=== PATIENT | male | born 1940 | race Caucasian/White ===

== ENCOUNTER 2017-01-30 16:33 | Outpatient (CLI) | payer MEDICARE | END 2017-01-30 16:34 | disposition home or self-care (01) | DX: I10 Essential (primary) hypertension (principal); E78.2 Mixed hyperlipidemia; R78.89 Finding of other specified substances, not normally found in blood ==

== ENCOUNTER 2017-08-27 08:02 | Outpatient (CLI) | payer MEDICARE ==
[2017-08-27 08:21] LABS: BASOPHILS # (AUTO) 0.1 10^3/uL (0.0-0.1); BASOPHILS % (AUTO) 0.5 %; EOSINOPHILS # (AUTO) 0.3 10^3/uL (0.0-0.7); EOSINOPHILS % (AUTO) 3.1 %; HCT - HEMATOCRIT 40.2 % (42.0-52.0); HGB - HEMOGLOBIN 13.5 g/dL (14.0-18.0); LYMPHOCYTES # (AUTO) 1.5 10^3/uL (1.5-3.5); LYMPHOCYTES % (AUTO) 13.6 %; MEAN CORPUSCULAR HEMOGLOBIN 28.8 pg (27.0-31.0); MEAN CORPUSCULAR HGB CONC 33.5 g/dL (32.0-36.0); MEAN PLATELET VOLUME 7.5 fL (7.4-11.4); MONOCYTES # (AUTO) 0.7 10^3/uL (0.0-1.0); MONOCYTES % (AUTO) 6.4 %; NEUTROPHILS # (AUTO) 8.5 10^3/uL (1.5-6.6); NEUTROPHILS % (AUTO) 76.4 %; RED BLOOD COUNT 4.68 10^6/uL (4.70-6.10); RED CELL DISTRIBUTION WIDTH 15.1 % (12.0-15.0); UNCORRECTED WHITE BLOOD COUNT 11.1 x10^3/uL; WHITE BLOOD COUNT 11.1 x10^3/uL (4.8-10.8)
[2017-08-27 08:53] LABS: ALBUMIN/GLOBULIN RATIO 1.3 (1.0-2.2); BILIRUBIN,TOTAL 0.7 mg/dL (0.2-1.0); BUN - BLOOD UREA NITROGEN 19 mg/dL (6-20); CARBON DIOXIDE - CO2 26 mmol/L (21-32); CHLORIDE 103 mmol/L (101-111); CHOLESTEROL 159 mg/dL; GFR - MDRD 73 (>89); GLUCOSE 109 mg/dL (70-100); HDL CHOLESTEROL 40 mg/dL; LDL CHOLESTEROL,DIRECT 83 mg/dL; LDL/HDL RATIO 1.8 (<3.6); POTASSIUM 3.9 mmol/L (3.5-5.0); SODIUM 139 mmol/L (135-145); TOTAL PROTEIN 7.5 g/dL (6.7-8.2); TRIGLYCERIDES 238 mg/dL; VLDL CHOLESTEROL 48 mg/dL
== END 2017-08-27 08:03 | disposition home or self-care (01) ==
LOC: LAB 08:02
PROVIDERS: ATTEND Family Medicine
DX: I10 Essential (primary) hypertension (principal); E78.1 Pure hyperglyceridemia; D64.9 Anemia, unspecified; E55.9 Vitamin D deficiency, unspecified
CPT/HCPCS: 36415; 80053; 80061; 82306; 85025

== ENCOUNTER 2018-03-14 05:51 | Emergency (ER) | payer MEDICARE ==
[2018-03-14 06:15] LABS: BASOPHILS # (AUTO) 0.1 10^3/uL (0.0-0.1); BASOPHILS % (AUTO) 0.7 %; EOSINOPHILS # (AUTO) 0.3 10^3/uL (0.0-0.7); EOSINOPHILS % (AUTO) 2.8 %; HGB - HEMOGLOBIN 14.5 g/dL (14.0-18.0); LYMPHOCYTES # (AUTO) 1.5 10^3/uL (1.5-3.5); MEAN CORPUSCULAR HGB CONC 32.7 g/dL (32.0-36.0); MEAN CORPUSCULAR VOLUME 88.8 fL (80.0-94.0); MEAN PLATELET VOLUME 7.5 fL (7.4-11.4); MONOCYTES # (AUTO) 0.7 10^3/uL (0.0-1.0); MONOCYTES % (AUTO) 7.2 %; NEUTROPHILS # (AUTO) 7.3 10^3/uL (1.5-6.6); NEUTROPHILS % (AUTO) 74.3 %; PLT - PLATELET COUNT 415 10^3/uL (130-450); RED BLOOD COUNT 5.01 10^6/uL (4.70-6.10); RED CELL DISTRIBUTION WIDTH 13.9 % (12.0-15.0); WHITE BLOOD COUNT 9.8 x10^3/uL (4.8-10.8)
[2018-03-14 06:27] LABS: ALBUMIN 4.1 g/dL (3.2-5.5); ALBUMIN/GLOBULIN RATIO 1.1 (1.0-2.2); BILIRUBIN,TOTAL 0.6 mg/dL (0.2-1.0); CALCIUM 9.3 mg/dL (8.5-10.3); CREATININE 1.2 mg/dL (0.6-1.2); TOTAL PROTEIN 7.7 g/dL (6.7-8.2)
--- NOTE | 2018-03-14 06:34 | XRAY Report ---
EXAM: CHEST RADIOGRAPHY EXAM DATE: 03/14/2018 06:18 AM. CLINICAL HISTORY: Chills. COMPARISON: 04/23/2014. TECHNIQUE: 1 view. FINDINGS: Lungs/Pleura: Small lung volumes. Mild atelectasis or infiltrate at the right base. Possible small ri ght pleural effusion. No pneumothorax. Mediastinum: Within exam limitations, heart size is probably normal. Other: Degenerative changes in the shoulders. There are 2 fer in the right glenoid. IMPRESSION: 1. Small lung volumes with mild right basilar atelectasis or infiltrate and possible small right effu anny. [facility] Referring Provider Line: [phone] SITE ID: [id number]
--- NOTE | 2018-03-14 06:34 | XRAY Preliminary Report ---
Exam: XR CHEST 1 VIEW X-RAY IMPRESSION: 1. Small lung volumes with mild right basilar atelectasis or infiltrate and possible small right effu anny. [facility] SITE ID: [id number]
--- NOTE | 2018-03-14 06:36 | ED Physician Documentation ---
History of Present Illness - Stated complaint Stated Complaint: COLD - Chief complaint Chief Complaint: General - History obtained from History obtained from: Patient - History of Present Illness Timing: How many weeks ago (1) - Additonal information Additional information: Patient is a 77 year old male who is presenting to the emergency department for a week of chills. Patient states that every since he visited his daughter about a week ago he has been cold in the morning. patient states that his temperature has been about 97 degrees. patient's only complaint is that he feels clammy and that his feet now feel funny. Patient was noted to be wearing two different shoes. Review of Systems Constitutional: reports: Chills, Sweats. denies: Fever, Myalgias Eyes: reports: Reviewed and negative Ears: reports: Reviewed and negative Nose: reports: Congestion Throat: reports: Reviewed and negative Cardiac: denies: Chest pain / pressure, Palpitations GI: denies: Nausea, Vomiting : denies: Dysuria, Frequency Musculoskeletal: reports: Extremity pain Neurologic: denies: Focal weakness, Numbness Immunocompromised: denies: Immunocompromised PD PAST MEDICAL HISTORY - Past Medical History Cardiovascular: Hypertension, High cholesterol Respiratory: None Endocrine/Autoimmune: None GI: None : None HEENT: Chronic hearing loss Psych: None Musculoskeletal: None Derm: None Other Past Medical History: [place] - Past Surgical History Past Surgical History: Yes Ortho: Rotator cuff repair HEENT: Tonsil/Adenoidectomy - Present Medications Home Medications: Ambulatory Orders Medication Instructions Recorded Confirmed Metoprolol Succinate 25 mg PO BID 04/18/13 04/23/14 HYDROcod/ACETAM 5/325 [Vicodin 1 each PO 3-4XD PRN 05/14/13 04/23/14 5/325] Simvastatin 20 mg PO DAILY 04/12/14 04/23/14 Azithromycin [Zithromax] 250 mg PO DAILY #6 tablet 04/23/14 Prednisone 10 mg PO DAILY #26 tablet 04/23/14 Saccharomyces Boulardii [Florastor] 500 mg PO BIDWM #20 capsule 04/23/14 Levofloxacin [Levaquin] 750 mg PO DAILY #4 tablet 03/14/18 - Allergies Allergies/Adverse Reactions: Allergies Allergy/AdvReac Type Severity Reaction Status Date / Time venom-honey bee Allergy Unknown Unknown Verified 04/12/14 19:04 [bee venom (honey bee)] - Social History Does the pt smoke?: No Smoking Status: Never smoker Does the pt drink ETOH?: No Does the pt have substance abuse?: No - Immunizations Immunizations are current?: Yes - POLST Patient has POLST: No PD ED PE NORMAL - Vitals Vital signs reviewed: Yes - General General: Alert and oriented X 3, No acute distress - HEENT HEENT: Atraumatic - Neck Neck: Supple, no meningeal sign, No JVD - Cardiac Cardiac: RRR - Respiratory Respiratory: No respiratory distress - Abdomen Abdomen: Soft - Derm Derm: Normal color - Extremities Extremities: No deformity - Neuro Neuro: Alert and oriented X 3 Eye Opening: Spontaneous - Psych Psych: Normal mood PD ED PE EXPANDED - Derm Derm: Other (clammy) Results - Vitals Vitals: Vital Signs - 24 hr 03/14/18 03/14/18 05:55 06:46 Temperature 36.5 C 36.7 C Heart Rate 87 102 H Respiratory 20 16 Rate Blood Pressure 150/92 H 152/96 H O2 Saturation 96 95 Oxygen O2 Source Room air - Labs Labs: Laboratory Tests 03/14/18 03/14/18 06:05 06:05 WBC 9.8 RBC 5.01 Hgb 14.5 Hct 44.5 MCV 88.8 MCH 29.0 MCHC 32.7 RDW 13.9 Plt Count 415 MPV 7.5 Neut # (Auto) 7.3 H Lymph # (Auto) 1.5 [place] # (Auto) 0.7 Eos # (Auto) 0.3 Baso # (Auto) 0.1 Absolute Nucleated RBC 0.00 Nucleated RBC % 0.0 Sodium 139 Potassium 3.7 Chloride 106 Carbon Dioxide 26 Anion Gap 7.0 BUN 19 Creatinine 1.2 Estimated GFR (MDRD) 59 L Glucose 108 H Calcium 9.3 Total Bilirubin 0.6 AST 21 ALT 27 Alkaline Phosphatase 63 Total Protein 7.7 Albumin 4.1 Globulin 3.6 Albumin/Globulin Ratio 1.1 Lipase 29 - Rads (name of study) chest x-ray Radiology: Final report received (right lower lobe pneumonia) PD MEDICAL DECISION MAKING - ED course Complexity details: reviewed old records, reviewed results, re-evaluated patient , considered differential, d/w patient ED course: Patient was seen and examined at bedside. labs were drawn and chest x-ray was ordered. Patient was found to have a right sided infiltrate. Patient was started on levaquin because he had recently been on azithromycin. patient's vital signs were within normal limits. patient was well appearing and required no further work up and was stable for discharge with outpatient follow up. Departure - Departure Disposition: 01 Home, Self Care Clinical Impression: Pneumonia Condition: Good Instructions: ED Pneumonia Adult Follow-Up: Ayan Estrada DO [Primary Care Provider] - Within 3 Days Prescriptions: Levofloxacin [Levaquin] 750 mg PO DAILY #4 tablet Comments: Your blood work today was within normal limits but your were found to have a small developing pneumonia. You had your first dose of antibiotics today and will need to be on them for the next 4 days. You should follow up with your doctor if your symptoms persist. you may return to the emergency department at any time for new, worsening or uncontrollable symptoms.
[2018-03-14] MEDS ORDERED: levoFLOXacin 250 MG TABLET PO STA (06:49)
[2018-03-14 06:50] VITALS: BP 152/96
== END 2018-03-14 07:02 | disposition home or self-care (01) ==
LOC: ED 05:51
DX: I10 Essential (primary) hypertension (principal); J18.9 Pneumonia, unspecified organism
CPT/HCPCS: 36415; 71045; 80053; 83690; 84443; 85025; 99284; A9270